=== PATIENT | female | born 1965 | race Caucasian/White ===

== ENCOUNTER 2016-03-20 11:53 | Emergency (ER) | payer MEDICAID ==
[2016-03-20 12:03] VITALS: BP 134/86
--- NOTE | 2016-03-20 12:39 | ED ---
Complex/Multi-Sys Presentation - HPI Summary HPI Summary: 51 female presents today complaining of right flank and rib pain after a fall down 6 stairs last night 03/19/16. Patient states she also hit her face had a small cut on her upper lip and a chipped front tooth from this incident. She denies any difficulty breathing however admits to increasing pain when taking a deep breath. Denies any pain on her left flank. Her sister is a RN and told her she should get checked out incase she fractured a rib. That is her main concern today. She denies hitting her head and no LOC. No other PMHx. She has not taken any medication for the pain. States twisting to the left makes the pain worse and rest makes the pain better. States she was unable to sleep last night due to the discomfort. - History Of Current Complaint Chief Complaint: EDGeneral Time Seen by Provider: 03/20/16 12:11 Hx Obtained From: Patient Onset/Duration: Sudden Onset Timing: Constant Severity Currently: Mild Severity Initially: Moderate Location: Pain At: - right flank rib area, without radiation Character: Sharp - upon movement and states she also feels like it is a burning sensation. sore., Dull - at rest Aggravating Factor(s): movement and palpating the area. hurts worse with deep breaths Alleviating Factor(s): rest Associated Signs And Symptoms: Positive: Recent Trauma - fell down 6 stairs. Negative: Dizziness, Chest Pain, Abdominal Pain, Back Pain - Allergies/Home Medications Allergies/Adverse Reactions: Allergies Allergy/AdvReac Type Severity Reaction Status Date / Time No Known Allergies Allergy Verified 03/20/16 12:06 Home Medications: Home Medications NK [No Home Medications Reported] 03/20/16 [History Confirmed 03/20/16] PMH/Surg Hx/FS Hx/Imm Hx Previously Healthy: Yes Cardiovascular History: Denies: Hx Hypertension Respiratory History: Denies: Hx Asthma Musculoskeletal History: Denies: Hx Arthritis, Hx Back Problems Infectious Disease History: No Infectious Disease History: Denies: Traveled Outside the [place] in Last 30 Days - Family History Known Family History: Positive: None - Social History Alcohol Use: Occasionally Substance Use Type: Reports: None Smoking Status (MU): Never Smoked Tobacco Review of Systems Constitutional: Negative Eyes: Negative Positive: Dental Pain - chipped front tooth, small cut on upper lip Cardiovascular: Negative Positive: Other - pain at right flank upon deep breaths Gastrointestinal: Negative Genitourinary: Negative Positive: Arthralgia - right flank, ribs, Myalgia Skin: Negative Neurological: Negative Psychological: Normal All Other Systems Reviewed And Are Negative: Yes Physical Exam Triage Information Reviewed: Yes Vital Signs On Initial Exam: Initial Vitals Temp Pulse Resp BP Pulse Ox 98.7 F 83 16 134/86 100 03/20/16 11:55 03/20/16 11:55 03/20/16 11:55 03/20/16 11:55 03/20/16 11:55 Vital Signs Reviewed: Yes Appearance: Positive: Well-Appearing - laying on stretcher, Well-Nourished, Pain Distress - mild Skin: Positive: Warm, Skin Color Reflects Adequate Perfusion Head/Face: Positive: Other - very small .25cm laceration noted above upper lip, just under nose. very superficial already healing and approximated. no sutures or skin adhesive needed. Eyes: Positive: Normal ENT: Positive: Pharynx normal Dental: Positive: Dental Fracture @ - noted on central incisor #8, has appointment with dentist next week to have it repaired, Other Neck: Positive: Supple, Nontender, No Lymphadenopathy Respiratory/Lung Sounds: Positive: Clear to Auscultation, Breath Sounds Present Cardiovascular: Positive: Normal, RRR, Pulses are Symmetrical in both Upper and Lower Extremities Abdomen Description: Positive: Nontender, Soft Bowel Sounds: Positive: Present Musculoskeletal: Positive: Pain @ - right flank, rib reclamation kettle tender on palpation and with movement. left flank and ribs non-tender. no crepitus step off or obvious deformity noted. skin intact. no eccyhmosis, erythema or edema noted. Neurological: Positive: Normal, Sensory/Motor Intact, Alert, Oriented to Person Place, Time Psychiatric: Positive: Normal Diagnostics - Vital Signs Vital Signs Temp Pulse Resp BP Pulse Ox 03/20/16 11:55 98.7 F 83 16 134/86 100 - Laboratory Lab Statement: Any lab studies that have been ordered have been reviewed, and results considered in the medical decision making process. - Radiology right rib x-ray Xray Interpretation: No Acute Changes - no fracture of right ribs is present Radiology Interpretation Completed By: Radiologist chest x-ray Xray Interpretation: No Acute Changes - no active cardiopulmonary disease Radiology Interpretation Completed By: Radiologist Complex Multi-Symp Course/Dx Course Of Treatment: Right rib x-ray and chest x-ray ordered. patient was offered pain management but did not want it at this time. - Diagnoses Differential Diagnoses/HQI/PQRI: Other - rip fracture, rib sprain, muscle staring, costochondirits, punctured lung, laceration Provider Diagnoses: Rib contusion, Rib sprain, Rib tenderness Discharge - Discharge Plan Condition: Stable Disposition: HOME Patient Education Materials: Rib Contusion (ED) Referrals: No Primary Care Phys,NOPCP [Primary Care Provider] - Additional Instructions: Take OTC medication such as motrin or aleve for pain and inflammation. you may use heat and ice alternatively to also help with pain. rest and use pain as your guide for physical activity. if pain persists and does not improve please follow-up with your PCP or return to ED.
--- NOTE | 2016-03-20 12:51 | RAD ---
HISTORY: Injury, right flank pain COMPARISONS: None VIEWS: 2: Frontal dual-energy and lateral views of the chest. FINDINGS: CARDIOMEDIASTINAL SILHOUETTE: The cardiomediastinal silhouette is normal. LEO: The leo are normal. PLEURA: The costophrenic angles are sharp. No pleural abnormalities are noted. LUNG PARENCHYMA: The lungs are clear. ABDOMEN: The upper abdomen is clear. There is no subphrenic gas. BONES AND SOFT TISSUES: No bone or soft tissue abnormalities are noted. OTHER: None. IMPRESSION: NO ACTIVE CARDIOPULMONARY DISEASE.
--- NOTE | 2016-03-20 12:52 | RAD ---
Indication: Injury, right flank pain and chest pain. 3 views of the right ribs are reviewed. No definite fracture is identified. IMPRESSION: No fracture of the right ribs is present.
== END 2016-03-20 13:00 | disposition home or self-care (01) ==
LOC: ED 11:53
DX: S20.219A Contusion of unspecified front wall of thorax, initial encounter (principal); S23.41XA Sprain of ribs, initial encounter; W10.9XXA Fall (on) (from) unspecified stairs and steps, initial encounter; Y92.9 Unspecified place or not applicable; S01.511A Laceration without foreign body of lip, initial encounter; S02.5XXA Fracture of tooth (traumatic), initial encounter for closed fracture
CPT/HCPCS: 71020; 99281

== ENCOUNTER 2020-12-18 12:31 | Inpatient (IN) ==
[2020-12-18 13:24] LABS: Hematocrit 32 % (35-47); Hemoglobin 11.1 g/dL (12.0-16.0); Mean Corpuscular HGB Conc 34 g/dL (31-36); Mean Corpuscular Hemoglobin 31 pg (27-31); Mean Corpuscular Volume 89 fL (80-97); Mean Platelet Volume 8.7 fL (7.4-10.4); Platelet Count 243 10^3/uL (150-450); Red Blood Count 3.63 10^6 /uL (3.70-4.87); Red Cell Distribution Width 14 % (10-15)
[2020-12-18 13:25] LABS: ABS Lymphocytes 0.7 10^3/ul (1.0-4.8); ABS Monocytes 0.3 10^3/ul (0-0.8); ABS Neutrophils 0.1 10^3/ul (1.5-7.7); Eosinophil % 1.7 %; Lymphocyte % 63.9 %; Nucleated Red Blood Cells % 0.1
[2020-12-18 13:38] LABS: Rapid COVID-19 Molecular Undetected (Undetected)
[2020-12-18 13:39] LABS: Influenza A Molecular Negative (Negative); Influenza B Molecular Negative (Negative)
[2020-12-18 13:45] LABS: Albumin/Globulin Ratio 1.7 (1-3); Calcium 8.9 mg/dL (8.6-10.3); Globulin 2.4 g/dL (2-4); Potassium 3.5 mmol/L (3.5-5.0); Total Bilirubin 0.6 mg/dL (0.2-1.0); Total Protein 6.4 g/dL (6.4-8.9)
[2020-12-18] MEDS ORDERED: Cefepime 2 GM VIAL ONE (14:35)
[2020-12-18] MEDS ORDERED: Prochlorperazine 5 mg/ml 2 ml VIAL (10 mg) IV PRN (17:12)
[2020-12-18] MEDS ORDERED: Ondansetron 4 mg VIAL 2 MG/ML 2 ml VIAL IV PRN (17:12)
[2020-12-18] MEDS: NS 0.9% 1000 ml BAG 1,000 ML IV SCH (18:00)
[2020-12-18] MEDS: Cefepime 2 GM in Dextrose 2 GM/50 ML BAG IV SCH ×3 (18:00→18:14)
[2020-12-18] MEDS: Enoxaparin 40 MG/0.4 ML SYR SUBCUT SCH (18:08)
[2020-12-18 18:28] LABS: Urine Appearance Clear; Urine Bilirubin Negative (Negative); Urine Blood Negative (Negative); Urine Color Yellow; Urine Glucose Negative (Negative); Urine Ketones Negative (Negative); Urine Nitrite Negative (Negative); Urine Protein Negative (Negative); Urine Specific Gravity 1.015 (1.002-1.030); Urine Urobilinogen Negative (Negative)
[2020-12-19] MEDS: Cefepime 2 GM in Dextrose 2 GM/50 ML BAG IV SCH ×3 (01:32→18:02)
[2020-12-19] MEDS: NS 0.9% 1000 ml BAG 1,000 ML IV SCH ×2 (04:40→15:27)
[2020-12-19 05:03] LABS: Hematocrit 30 % (35-47); Hemoglobin 10.3 g/dL (12.0-16.0); Mean Corpuscular HGB Conc 34 g/dL (31-36); Mean Corpuscular Hemoglobin 31 pg (27-31); Mean Corpuscular Volume 89 fL (80-97); Mean Platelet Volume 8.4 fL (7.4-10.4); Platelet Count 265 10^3/uL (150-450); Red Blood Count 3.37 10^6 /uL (3.70-4.87); Red Cell Distribution Width 14 % (10-15); White Blood Count 1.5 10^3/uL (3.5-10.8)
[2020-12-19 05:19] LABS: Albumin 3.6 g/dL (3.2-5.2); Albumin/Globulin Ratio 1.6 (1-3); Calcium 8.2 mg/dL (8.6-10.3); Globulin 2.3 g/dL (2-4); Potassium 3.8 mmol/L (3.5-5.0); Total Bilirubin 0.6 mg/dL (0.2-1.0); Total Protein 5.9 g/dL (6.4-8.9)
[2020-12-19 05:21] LABS: ABS Lymphocytes 0.9 10^3/ul (1.0-4.8); ABS Monocytes 0.5 10^3/ul (0-0.8); ABS Neutrophils 0.1 10^3/ul (1.5-7.7); Eosinophil % 0.8 %; Lymphocyte % 62.8 %
[2020-12-19] MEDS: Enoxaparin 40 MG/0.4 ML SYR SUBCUT SCH (17:32)
[2020-12-20] MEDS: Cefepime 2 GM in Dextrose 2 GM/50 ML BAG IV SCH ×3 (01:46→17:13)
[2020-12-20] MEDS: NS 0.9% 1000 ml BAG 1,000 ML IV SCH (03:39)
[2020-12-20 09:08] LABS: Hematocrit 29 % (35-47); Hemoglobin 9.9 g/dL (12.0-16.0); Mean Corpuscular HGB Conc 34 g/dL (31-36); Mean Corpuscular Hemoglobin 31 pg (27-31); Mean Corpuscular Volume 89 fL (80-97); Platelet Count 282 10^3/uL (150-450); Red Blood Count 3.23 10^6 /uL (3.70-4.87); Red Cell Distribution Width 14 % (10-15); White Blood Count 1.8 10^3/uL (3.5-10.8)
[2020-12-20 09:24] LABS: Albumin 3.4 g/dL (3.2-5.2); Albumin/Globulin Ratio 1.4 (1-3); Globulin 2.4 g/dL (2-4); Total Bilirubin 0.3 mg/dL (0.2-1.0); Total Protein 5.8 g/dL (6.4-8.9)
[2020-12-20 09:47] LABS: ABS Monocytes 0.8 10^3/ul (0-0.8); ABS Neutrophils 0.1 10^3/ul (1.5-7.7); Eosinophil % 0.4 %; Lymphocyte % 54.4 %; Nucleated Red Blood Cells % 0.2
[2020-12-20] MEDS: Enoxaparin 40 MG/0.4 ML SYR SUBCUT SCH (15:24)
[2020-12-20] MEDS: Senna TAB 8.6 mg TAB PO PRN (23:10)
[2020-12-21] MEDS: Cefepime 2 GM in Dextrose 2 GM/50 ML BAG IV SCH ×3 (02:25→17:43)
[2020-12-21] MEDS: NS 0.9% 1000 ml BAG 1,000 ML IV SCH ×2 (05:25→20:19)
[2020-12-21 06:01] LABS: Hematocrit 30 % (35-47); Hemoglobin 10.2 g/dL (12.0-16.0); Mean Corpuscular HGB Conc 34 g/dL (31-36); Mean Corpuscular Hemoglobin 30 pg (27-31); Mean Corpuscular Volume 88 fL (80-97); Mean Platelet Volume 8.3 fL (7.4-10.4); Platelet Count 305 10^3/uL (150-450); Red Blood Count 3.39 10^6 /uL (3.70-4.87); Red Cell Distribution Width 14 % (10-15); White Blood Count 2.5 10^3/uL (3.5-10.8)
[2020-12-21 06:21] LABS: Albumin 3.7 g/dL (3.2-5.2); Albumin/Globulin Ratio 1.5 (1-3); Calcium 8.6 mg/dL (8.6-10.3); Globulin 2.4 g/dL (2-4); Potassium 3.9 mmol/L (3.5-5.0); Total Bilirubin 0.3 mg/dL (0.2-1.0); Total Protein 6.1 g/dL (6.4-8.9)
[2020-12-21 10:14] LABS: ABS Lymphocytes 1.2 10^3/ul (1.0-4.8); ABS Monocytes 1.1 10^3/ul (0-0.8); ABS Neutrophils 0.1 10^3/ul (1.5-7.7); Eosinophil % 0.5 %; Lymphocyte % 49.4 %; Nucleated Red Blood Cells % 0.1; RBC Morphology Normal (Normal)
[2020-12-21] MEDS: guaiFENesin/CODIENE 100mg/10mg 5 ML UDC PO PRN ×3 (11:38→22:16)
[2020-12-21] MEDS: Enoxaparin 40 MG/0.4 ML SYR SUBCUT SCH (14:39)
[2020-12-21] MEDS: Senna TAB 8.6 mg TAB PO PRN (22:26)
[2020-12-22] MEDS: Cefepime 2 GM in Dextrose 2 GM/50 ML BAG IV SCH ×3 (02:04→17:51)
[2020-12-22 05:56] LABS: Hematocrit 30 % (35-47); Hemoglobin 10.3 g/dL (12.0-16.0); Mean Corpuscular HGB Conc 34 g/dL (31-36); Mean Corpuscular Hemoglobin 30 pg (27-31); Mean Corpuscular Volume 88 fL (80-97); Mean Platelet Volume 7.8 fL (7.4-10.4); Platelet Count 350 10^3/uL (150-450); Red Blood Count 3.43 10^6 /uL (3.70-4.87); Red Cell Distribution Width 14 % (10-15); White Blood Count 3.4 10^3/uL (3.5-10.8)
[2020-12-22 07:52] LABS: ABS Lymphocytes 1.5 10^3/ul (1.0-4.8); ABS Monocytes 1.1 10^3/ul (0-0.8); ABS Neutrophils 0.7 10^3/ul (1.5-7.7); Eosinophil % 0.2 %
[2020-12-22] MEDS: guaiFENesin/CODIENE 100mg/10mg 5 ML UDC PO PRN ×3 (09:04→21:25)
[2020-12-22] MEDS: Enoxaparin 40 MG/0.4 ML SYR SUBCUT SCH (14:09)
[2020-12-22] MEDS: Senna TAB 8.6 mg TAB PO PRN (21:24)
[2020-12-22] MEDS ORDERED: NS 0.9% 1000 ml BAG 1,000 ML IV SCH (21:31)
[2020-12-23] MEDS: Cefepime 2 GM in Dextrose 2 GM/50 ML BAG IV SCH ×2 (02:10→09:47)
[2020-12-23] MEDS: guaiFENesin/CODIENE 100mg/10mg 5 ML UDC PO PRN ×2 (05:28→09:47)
[2020-12-23 05:44] LABS: Hematocrit 29 % (35-47); Hemoglobin 9.8 g/dL (12.0-16.0); Mean Corpuscular HGB Conc 34 g/dL (31-36); Mean Corpuscular Hemoglobin 30 pg (27-31); Mean Corpuscular Volume 89 fL (80-97); Mean Platelet Volume 7.7 fL (7.4-10.4); Platelet Count 351 10^3/uL (150-450); Red Blood Count 3.24 10^6 /uL (3.70-4.87); Red Cell Distribution Width 14 % (10-15)
[2020-12-23 06:01] LABS: Calcium 8.6 mg/dL (8.6-10.3); Potassium 3.9 mmol/L (3.5-5.0)
[2020-12-23 08:11] LABS: Basophilic Stippling 1+; Polychromasia 1+
[2020-12-23 08:13] LABS: ABS Lymphocytes 1.8 10^3/ul (1.0-4.8); ABS Neutrophils 1.5 10^3/ul (1.5-7.7)
[2020-12-23 09:20] VITALS: BP 98/50
== END 2020-12-23 12:00 | disposition home or self-care (01) | DRG 660 ==
LOC: CHOA 12:31 → MED 14:28
PROVIDERS: ADMIT Internal Medicine Hematology & Oncology; ATTEND Internal Medicine Hematology & Oncology